=== PATIENT | female | born 1975 | race Caucasian/White ===

== ENCOUNTER 2020-07-08 20:00 | Outpatient (REF) | payer OTHER, SELFPAY | END 2020-07-08 20:20 | LOC: LBN 20:00 | PROVIDERS: PCP Nurse Practitioner; Visit Provider Physician Assistant | DX: N39.0 Urinary tract infection, site not specified (principal) | CPT/HCPCS: 87077; 87086; 87186 ==

== ENCOUNTER 2020-07-14 19:07 | Outpatient (REF) | payer OTHER, SELFPAY ==
[2020-07-14 19:33] LABS: HCT 41.6 % (36.0-46.0); HGB 13.3 g/dL (11.2-15.7); MCH 30.3 pg (27.0-33.0); MCV 94.8 fL (80-95); MPV 11.5 fL (8.0-11.0); Platelet Count 349 10^3/uL (130-400); RBC 4.39 10^6/uL (3.93-5.22); RDW 13.2 % (11.7-14.6); RDW-SD 46.5 fL; WBC 7.37 10^3/uL (4.4-10.8)
[2020-07-14 20:08] LABS: Calculated LDL 94 mg/dL (<100); Cholesterol 155 mg/dL (<200); HDL Cholesterol 48 mg/dL (40-60); Triglyceride 68 mg/dL (<150)
[2020-07-14 20:09] LABS: Hemoglobin A1C 5.4 % (3.8-5.6)
== END 2020-07-14 19:27 ==
LOC: LBN 19:07
PROVIDERS: PCP Nurse Practitioner; Visit Provider Nurse Practitioner
DX: Z00.00 Encounter for general adult medical examination without abnormal findings (principal); Z13.220 Encounter for screening for lipoid disorders; Z13.1 Encounter for screening for diabetes mellitus; T14.8XXA Other injury of unspecified body region, initial encounter
CPT/HCPCS: 80061; 85027; 83036

== ENCOUNTER 2020-08-09 00:38 | Outpatient (CLI) | payer OTHER, SELFPAY ==
--- NOTE | 2020-08-09 07:15 | DI.MAMMO_ITS ---
EXAM: MAMMO SCREENING CLINICAL HISTORY: screening,Z12.39 TECHNIQUE: Mammograms were interpreted according to the usual protocol including computer analysis w Simplify CAD system, tomosynthesis and C-view imaging. COMPARISON: FINDINGS: Today's examination is a baseline examination. The breasts are of moderate density with fairly symme trical distribution of fibroglandular tissue. There are multiple small nodules identified in both br easts which appear predominantly well circumscribed. The largest nodules are right breast, including an approximately 8-9 millimeter in diameter nodule in the 12 o'clock position couple of smaller nodu les in the 6 o'clock position. Additional mammographic views of the right breast and right breast ul trasound requested for further characterization of these indeterminate breast nodules. IMPRESSION: Additional mammographic views of the right breast and right breast ultrasound requested as described above. BI-RADS Cat 0 - Assessment Incomplete: Need additional imaging evaluation Breast Density - Category B - Scattered areas of fibroglandular density
== END 2020-08-09 00:58 ==
PROVIDERS: PCP Nurse Practitioner; Visit Provider Nurse Practitioner
DX: Z12.31 Encounter for screening mammogram for malignant neoplasm of breast (principal); N63.10 Unspecified lump in the right breast, unspecified quadrant
CPT/HCPCS: 77063; 77067

== ENCOUNTER 2020-08-18 02:09 | Outpatient (CLI) | payer OTHER, SELFPAY ==
--- NOTE | 2020-08-18 | DI.US_ITS ---
EXAM: MG MAMMO SCREEN CALL BACK UNI CLINICAL HISTORY: F/U MAMMO, RT BREAST NODULES. TECHNIQUE: Craniocaudal and mediolateral oblique Full Field Digital Mammography views of the right b reast with Computer Aided Diagnosis followed by Tomosynthesis and right breast ultrasound. COMPARISON: Priors available for comparison. FINDINGS: Mammography/Tomosynthesis: Masses/Architectural Distortion: The additional views again show several nodular densities in the rig ht breast. Microcalcifictions: No suspicious pleomorphic-type are seen. Skin Thickening/Nipple Retraction: None. Right breast US: Echotexture: Normal appearance of the glandular tissue. Shadowing: No suspicious foci. Cyst: None. Solid lesions: Ultrasound shows 3 well-circumscribed, hypoechoic, avascular and nonshadowing nodules in the 12 and 6 o'clock position of the right breast all 2 cm from the nipple. These correspond to t he mammographic abnormalities. Ductal dilation: None. IMPRESSION: 1. No definite evidence of malignancy is noted at this time. 2. A six-month follow-up right mammogram and right breast ultrasound is requested for re-evaluation. 3. The findings were discussed with the patient on the date of the examination. BI-RADS Category 3 - 6 month - Probably Benign Finding: Recommend follow-up mammography in 6 months Breast Density - Category B - Scattered areas of fibroglandular density A negative radiographic report should not delay biopsy if a dominant or clinically suspicious mass is present. Up to ten percent of cancers are not identified on mammography. A negative report may reinforce clinical impression. Adenosis and dense breasts may obscure an underlying neoplasm. False positive reports average 6 to 10%. Patient will receive a letter notifying them of these results.
== END 2020-08-18 02:29 ==
PROVIDERS: PCP Nurse Practitioner; Visit Provider Nurse Practitioner
DX: N63.15 Unspecified lump in the right breast, overlapping quadrants (principal)
CPT/HCPCS: 76642; 77063; 77067

== ENCOUNTER 2020-08-19 16:12 | Outpatient (REF) | payer OTHER, SELFPAY ==
--- NOTE | 2020-08-19 15:00 | PAPFT_PTH ---
PATIENT: Priya Miller LOC: [facility] U#:[id number] AGE/SX: 44/F ROOM: RE08/19/[address]: Madonna Campos, PhD [employer] : 1975 BED: DIS: 08/19/2020 SPEC #: [id number] RECD: 08/23/20 12:52 STATUS: CROW REQ #: [id number] JASIEL: 08/19/20 15:[address]: Madonna Campos DEPT: [facility] Cytology RECD BY: Yvette Gary Tissues: 1 - CX/ENDOCX FOR PAP SMEARS Procedures: PAP THIN PREP/[facility] Screening HPV DNA PROBE Comments: [id number] (HPV 16 & 18/45)
== END 2020-08-19 16:32 ==
LOC: LBN 16:12
PROVIDERS: PCP Nurse Practitioner; Visit Provider Nurse Practitioner
DX: R87.810 Cervical high risk human papillomavirus (HPV) DNA test positive (principal); Z12.4 Encounter for screening for malignant neoplasm of cervix
CPT/HCPCS: 88142; 87624

== ENCOUNTER 2020-09-22 18:57 | Outpatient (REF) | payer OTHER, SELFPAY | END 2020-09-22 19:17 | LOC: LBN 18:57 | PROVIDERS: PCP Nurse Practitioner; Visit Provider Nurse Practitioner | DX: R31.9 Hematuria, unspecified (principal) | CPT/HCPCS: 87077; 87086; 87186 ==

== ENCOUNTER 2020-12-12 15:52 | Outpatient (REF) | payer OTHER, SELFPAY ==
[2020-12-14 10:20] LABS: Campylobacter PCR Negative (Negative); Salmonella PCR Negative (Negative); Shiga Toxin PCR Negative (Negative); Shigella/Enteroinvasive Ecoli Negative (Negative)
== END 2020-12-12 16:12 ==
LOC: LBN 15:52
PROVIDERS: Physician Assistant; PCP Nurse Practitioner; Visit Provider Nurse Practitioner
DX: R19.7 Diarrhea, unspecified (principal)
CPT/HCPCS: 87493; 87505

== ENCOUNTER 2021-03-15 08:41 | Outpatient (CLI) | payer OTHER, SELFPAY ==
[2021-03-16 11:52] LABS: COVID-19 RT-PCR UVMMC Result Negative (Negative)
== END 2021-03-15 08:42 | disposition home or self-care (01) ==
PROVIDERS: PCP Nurse Practitioner; Visit Provider Emergency Medicine
DX: Z20.822 Contact with and (suspected) exposure to COVID-19 (principal)
CPT/HCPCS: U0003

== ENCOUNTER 2021-09-01 12:00 | Outpatient (REF) | payer OTHER, SELFPAY ==
--- NOTE | 2021-09-01 15:30 | PAPFT_PTH ---
PATIENT: Priya Miller LOC: [facility] U#:[id number] AGE/SX: 45/F ROOM: RE09/01/[address]: Madonna Campos, PhD [employer] WORKER : 1975 BED: DIS: 09/01/2021 SPEC #: [id number] RECD: 09/04/21 13:04 STATUS: CROW LARSEN #: [id number] JASIEL: 09/01/21 15:[address]: Madonna Campos DEPT: [facility] Cytology RECD BY: Yvette Gary Tissues: 1 - CX/ENDOCX FOR PAP SMEARS Procedures: PAP THIN PREP/[facility] Screening HPV DNA PROBE Comments: [id number]
== END 2021-09-01 12:01 | disposition home or self-care (01) ==
LOC: LBN 12:00
PROVIDERS: PCP Nurse Practitioner; Visit Provider Nurse Practitioner
DX: Z12.4 Encounter for screening for malignant neoplasm of cervix (principal); Z11.51 Encounter for screening for human papillomavirus (HPV)
CPT/HCPCS: 88142; 87624

== ENCOUNTER 2021-11-27 15:28 | Outpatient (REF) | payer OTHER, SELFPAY ==
[2021-11-28 16:36] LABS: COVID-19 RT-PCR UVMMC Result Negative (Negative)
== END 2021-11-27 15:29 | disposition home or self-care (01) ==
LOC: LBN 15:28
PROVIDERS: PCP Nurse Practitioner; Visit Provider Physician Assistant
DX: Z20.822 Contact with and (suspected) exposure to COVID-19 (principal)
CPT/HCPCS: U0003

== ENCOUNTER 2022-04-02 15:36 | Outpatient (REF) | payer OTHER, MEDICAID, SELFPAY ==
[2022-04-04 11:48] LABS: COVID-19 RT-PCR UVMMC Result Positive (Negative)
== END 2022-04-02 15:37 | disposition home or self-care (01) ==
LOC: LBN 15:36
PROVIDERS: PCP Nurse Practitioner; Visit Provider Nurse Practitioner
DX: Z20.822 Contact with and (suspected) exposure to COVID-19 (principal)
CPT/HCPCS: U0003

== ENCOUNTER 2022-08-02 04:01 | Outpatient (CLI) | payer OTHER, MEDICAID, SELFPAY ==
--- NOTE | 2022-08-02 16:00 | NS.NUTBLAN_ITS ---
Priya was referred to weight management education. 5'0' 185lbs BMI: 36 PMH: Obesity Diet Recall: B: breakfast wrap at . Lunch: juices 1 apple with greens, D: chicken, vegetables, 1 tortilla. Snacks: trail mix Priya reports that about 10 years ago, she weighed about 140 lbs and has been steadily gaining. She was just started on Ozempic .75 mg q week and reports that it has reduced her appetite. Her goal weight is 145-150 lbs. Session today focused on how to follow a lower carb, higher protein diet with emphasis on complex carbs, lean protein and healthy fats. Encouraged walking daily 1-2 miles with steps averaging daily [phone]. Goal: 4-5 lbs weight loss per month Follow up 09/13/22 at 4:30 pm
== END 2022-08-02 04:02 | disposition home or self-care (01) ==
LOC: DS 04:01
PROVIDERS: PCP Nurse Practitioner; Visit Provider Dietitian, Registered
DX: E66.8 Other obesity (principal); Z68.36 Body mass index [BMI] 36.0-36.9, adult; Z71.3 Dietary counseling and surveillance
CPT/HCPCS: 97802

== ENCOUNTER → 2022-09-06 01:29 | Outpatient (CLI) | payer OTHER, MEDICAID, SELFPAY ==
--- NOTE | 2022-09-06 07:39 | DI.MAMMO_ITS ---
Exam(s) MAMMO SCREENING EXAM: MAMMO SCREENING CLINICAL HISTORY: screening Z12.39 SCREENING FOR BREAST CANCER TECHNIQUE: Bilateral full field digital CC and MLO mammographic images were obtained with 3D tomosyn thesis and utilizing computer aided detection (CAD). COMPARISON: Available for comparison. FINDINGS: Masses/Architectural Distortion: No suspicious masses or areas of architectural distortion are seen. There are stable bilateral well-circumscribed nodules in both breasts. Microcalcifications: No suspicious pleomorphic-type are seen. Skin Thickening/Nipple Retraction: None. IMPRESSION: 1. No significant interval change with no specific features of malignancy noted. 2. Unless there is more urgent need, screening mammography is recommended, as per [employer] guidelines. BI-RADS Category 2 - Benign Findings Breast Density - Category B - Scattered areas of fibroglandular density Breast density category C or D implies that the patient has dense breast tissue. Dense breast tissue is very common and is not abnormal but dense breast tissue can make it harder to find cancer on a ma mmogram. Also, dense breast tissue may increase their breast cancer risk. This information about the result of the mammogram report was provided to the patient to raise their awareness. Use this report when you speak with the patient about their risks for breast cancer, which includes their family hist ory. At that time, you may recommend for more screening tests (Ultrasound or MRI) as they might be us eful based on their risk. A negative radiographic report should not delay biopsy if a dominant or clinically suspicious mass is present. Up to ten percent of cancers are not identified on mammography. A negative report may reinforce clinical impression. Adenosis and dense breasts may obscure an underlying neoplasm. False positive reports average 6 to 10%. Patient will receive a letter notifying them of these results.
== END ==
PROVIDERS: PCP Nurse Practitioner; Visit Provider Nurse Practitioner Family
DX: Z12.31 Encounter for screening mammogram for malignant neoplasm of breast (principal)
CPT/HCPCS: 77063; 77067

== ENCOUNTER 2022-09-13 03:58 | Outpatient (CLI) | payer OTHER, MEDICAID, SELFPAY ==
[2022-09-13 12:48] LABS: Hemoglobin A1C 5.8 % (<5.7)
[2022-09-13 12:56] LABS: Anion Gap 10.1 mmol/L (3-11); BUN 12 mg/dL (7-18); CO2 27.9 mmol/L (21.0-32.0); CREATININE 0.9 mg/dL (0.55-1.02); Calcium 9.7 mg/dL (8.5-10.1); Calculated LDL 114 mg/dL (<100); Chloride 104 mmol/L (98-107); Cholesterol 182 mg/dL (<200); Estimated GFR 79.35 (mL/min/1.73m2); Glucose 91 mg/dL (74-106); HDL Cholesterol 47 mg/dL (40-60); Potassium 3.8 mmol/L (3.5-5.1); Sodium 142 mmol/L (136-145); TSH (W/Ref FT4) 1.23 uIU/mL (0.36-3.74); Triglyceride 107 mg/dL (<150)
== END 2022-09-13 03:59 | disposition home or self-care (01) ==
LOC: LOS 03:59
PROVIDERS: PCP Nurse Practitioner; Referring Provider Family Medicine; Visit Provider Family Medicine
DX: E66.9 Obesity, unspecified (principal); Z13.6 Encounter for screening for cardiovascular disorders; R73.01 Impaired fasting glucose; E03.9 Hypothyroidism, unspecified; I10 Essential (primary) hypertension
CPT/HCPCS: 36415; 80048; 80061; 83036; 84443

== ENCOUNTER 2023-04-02 01:28 | Outpatient (CLI) | payer OTHER, MEDICAID, SELFPAY ==
--- NOTE | 2023-04-02 07:30 | DI.MRI_ITS ---
Exam(s) MR UPPER JOINT LT WO EXAM: MR UPPER JOINT LT WO CLINICAL HISTORY: Left shoulder pain, with injury,s49.92xa TECHNIQUE: Multiplanar multisequence MRI of the shoulder was performed. COMPARISON: No exams were available for comparison FINDINGS: MARROW:There is no evidence of fracture, Hill-Sachs deformity, nor ominous osseous lesions. ROTATOR CUFF MECHANISM: AC JOINT/ACROMIUM: No prominent degenerative changes in the AC joint. There is mild undersurface sof t tissue hypertrophy but no downgoing osteophytes. There is no evidence of os acromiale. Supraspinatus: Intact. No evidence of tear nor muscle atrophy. Infraspinatus: Intact. No evidence of tear nor muscle atrophy. Teres Minor: Intact. No evidence of tear nor muscle atrophy. Subscapularis/anterior cuff: Intact. No abnormal signal at the level of the multipennate insertional fibers. No significant tear nor atrophy. BICEPS TENDON: Normally position in the intertubercular groove. No evidence of tear. However, there does appear to be some the tendon at the level of the intertubercular groove consistent with tenosyn ovitis. There is no loose intra-articular body with in the tendon sheath this level. LABRUM: There is no abnormal signal in the superior labrum posterior to the biceps insertion. Spoke Maker ior labrum appears intact. Anterior labrum appears intact. Inferior labrum appears intact. No evid ence of osseous Bankart lesion. GLENOHUMERAL JOINT: No joint effusion nor obvious loose intra-articular bodies. No chondral defects. No osteophytes. There is a single small 4 millimeter degenerative subarticular cyst on the posteri or lateral aspect of the humeral head subjacent to the infraspinatus insertion site. QUADRILATERAL SPACE: No evidence of mass in the region of the axillary nerve and dorsal circumflex hu meral vessels. Visualized triceps muscle at this level appears unremarkable. IMPRESSION: 1. There is localized fluid within the long head triceps tendon sheath within the intertubercular amarjit ove consistent with tenosynovitis. No tear nor displacement of the biceps tendon. No evidence of lo ose body within the biceps tendon sheath. There is no evidence of obvious labral tear. No evidence of paralabral cyst. 2. No evidence of rotator cuff tear. No obvious tendinitis signal. No muscle atrophy. 3. Minimal if any significant degenerative changes in the glenohumeral and AC joints. DATA REPOSITORY:
== END 2023-04-02 01:48 ==
PROVIDERS: PCP Family Medicine; Visit Provider Nurse Practitioner Family
DX: S49.92XA Unspecified injury of left shoulder and upper arm, initial encounter (principal); M75.52 Bursitis of left shoulder
CPT/HCPCS: 73221